=== PATIENT | female | born 1955 | race Caucasian/White ===

== ENCOUNTER 2023-05-27 10:41 | Emergency (ER) | payer MEDICARE ==
[2023-05-27] MEDS ORDERED: Ondansetron PF 4 MG/2 ML Vial ONE (11:23)
[2023-05-27] MEDS ORDERED: Morphine 4 MG/ML VIAL ONE ×2 (11:23→14:02)
[2023-05-27 11:32] LABS: #Basophils 0.1 thou/uL (0.0-0.2); #Eosinphils 0.2 thou/uL (0.0-0.7); #Monocytes 0.6 thou/uL (0.11-0.59); #Neutrophils 5.2 thou/uL (1.40-6.50); %Basophils 0.7 % (0.0-1.0); %Lymphocytes 27.7 % (21.0-51.0); %Monocytes 7.4 % (0.0-10.0); %Neutrophils 61.7 % (42.0-75.0); Hematocrit 41.9 % (36.0-47.0); Hemoglobin 13.7 g/dL (12.0-16.0); Mean Corpuscular HGB CONC 32.7 g/dL (32.0-36.0); Mean Corpuscular Hemoglobin 30.6 pg (27.0-31.0); Mean Corpuscular Volume 93.7 fl (78.0-98.0); Mean Platelet Volume 9.9 fL (7.4-10.4); Platelet Count 236 10x3/uL (130-400); RBC Distribution Width 13.7 % (11.5-14.5); Red Blood Cell (RBC) Count 4.47 mill/uL (4.20-5.40); White Blood Cell (WBC) Count 8.4 10x3/uL (4.8-10.8)
[2023-05-27 11:59] LABS: ALT (SGPT) 17 U/L (8-55); AST (SGOT) 14 U/L (5-34); Albumin 3.8 g/dL (3.4-4.8); Alkaline Phosphatase 77 U/L (40-110); Anion Gap 13 mmol/L (10-20); BUN (Urea Nitrogen) 16 mg/dL (9.8-20.1); Bilirubin, Total 0.8 mg/dL (0.2-1.2); Calc. Creatinine Clearance 0 mL/min (70-130); Calcium 8.8 mg/dL (7.8-10.44); Carbon Dioxide 25 mmol/L (23-31); Chloride 107 mmol/L (98-107); Estimated GFR 77; Globulin 2.9 g/dL (2.4-3.5); Glucose 138 mg/dL (80-115); Magnesium 2.1 mg/dL (1.6-2.6); Potassium 4.8 mmol/L (3.5-5.1); Protein, Total 6.7 g/dL (5.8-8.1); Sodium 140 mmol/L (136-145)
[2023-05-27 12:04] LABS: CKMB 1.2 ng/mL (0-6.6); Troponin I Less than 0.010 ng/mL (< 0.028)
[2023-05-27 12:17] LABS: Free T4 (Free Thyroxine) 1.03 ng/dL (0.70-1.48); Thyroid Stimulating Hormone 3.4497 uIU/mL (0.35-4.94)
[2023-05-27] MEDS ORDERED: Clindamycin/D5W 300 MG/50 ML BAG ONE (12:39)
[2023-05-27] MEDS ORDERED: Clindamycin 150 MG CAP ONE (12:40)
[2023-05-27] MEDS ORDERED: Clindamycin 150 MG CAP PO SCH (12:45)
== END 2023-05-27 14:14 | disposition home or self-care (01) ==
LOC: ERS 10:41
DX: L03.116 Cellulitis of left lower limb (principal); E11.9 Type 2 diabetes mellitus without complications
CPT/HCPCS: 36415; 71045; 80053; 82553; 83605; 83735; 83880; 84439; 84443; 85025; 87040; 93005; 96374; 96375; 96376; J2270; J2405; J3490

== ENCOUNTER 2023-06-14 11:57 | Emergency (ER) | payer MEDICARE ==
[2023-06-14 12:50] LABS: #Basophils 0.1 thou/uL (0.0-0.2); #Eosinphils 0.2 thou/uL (0.0-0.7); #Monocytes 0.7 thou/uL (0.11-0.59); #Neutrophils 6.3 thou/uL (1.40-6.50); %Basophils 0.5 % (0.0-1.0); %Eosinophils 2.2 % (0.0-10.0); %Lymphocytes 25.3 % (21.0-51.0); %Monocytes 7.3 % (0.0-10.0); %Neutrophils 64.4 % (42.0-75.0); Hematocrit 43.1 % (36.0-47.0); Hemoglobin 14.3 g/dL (12.0-16.0); Mean Corpuscular HGB CONC 33.2 g/dL (32.0-36.0); Mean Corpuscular Hemoglobin 30.8 pg (27.0-31.0); Mean Corpuscular Volume 92.7 fl (78.0-98.0); Platelet Count 270 10x3/uL (130-400); RBC Distribution Width 13.6 % (11.5-14.5); Red Blood Cell (RBC) Count 4.65 mill/uL (4.20-5.40); White Blood Cell (WBC) Count 9.8 10x3/uL (4.8-10.8)
[2023-06-14 13:16] LABS: ALT (SGPT) 18 U/L (8-55); AST (SGOT) 16 U/L (5-34); Albumin 3.8 g/dL (3.4-4.8); Alkaline Phosphatase 86 U/L (40-110); Anion Gap 13 mmol/L (10-20); BUN (Urea Nitrogen) 17 mg/dL (9.8-20.1); Bilirubin, Total 1.1 mg/dL (0.2-1.2); Calc. Creatinine Clearance 0 mL/min (70-130); Calcium 8.8 mg/dL (7.8-10.44); Carbon Dioxide 22 mmol/L (23-31); Chloride 105 mmol/L (98-107); Estimated GFR 81; Globulin 3.4 g/dL (2.4-3.5); Glucose 105 mg/dL (80-115); Potassium 4.1 mmol/L (3.5-5.1); Protein, Total 7.2 g/dL (5.8-8.1); Sodium 136 mmol/L (136-145)
== END 2023-06-14 14:50 | disposition home or self-care (01) ==
LOC: ERS 11:57
DX: R22.43 Localized swelling, mass and lump, lower limb, bilateral (principal); M79.605 Pain in left leg; M79.604 Pain in right leg; H60.509 Unspecified acute noninfective otitis externa, unspecified ear; E11.9 Type 2 diabetes mellitus without complications
CPT/HCPCS: 36415; 71046; 80053; 83880; 85025

== ENCOUNTER 2024-07-29 13:32 | Inpatient (IN) | payer MEDICARE, OTHER ==
[~2024-07-29 13:32] MED LIST: Iopamidol-370 76% 500 ML MDV (1 ML CHARGE) ONE
[2024-07-29] MEDS ORDERED: dilTIAZem 25 MG/5 ML VIAL ONE ×2 (15:01→16:05)
[2024-07-29 15:13] LABS: #Basophils 0.06 10x3/uL (0.0-0.2); #Eosinophils Less than 0.03 10x3/uL (0.0-0.7); %Basophils 0.3 % (0.0-1.0); %Lymphocytes 6.7 % (21.0-51.0); %Monocytes 4.8 % (0.0-10.0); %Neutrophils 87.7 % (42.0-75.0); Hematocrit 42.2 % (36.0-47.0); Hemoglobin 14.2 g/dL (12.0-16.0); Mean Corpuscular HGB CONC 33.6 g/dL (32.0-36.0); Mean Corpuscular Hemoglobin 30.4 pg (27.0-31.0); Mean Corpuscular Volume 90.4 fL (78.0-98.0); Mean Platelet Volume 9.8 fL (7.4-10.4); Platelet Count 201 10x3/uL (130-400); RBC Distribution Width 13.8 % (11.5-14.5); Red Blood Cell (RBC) Count 4.67 mill/uL (4.20-5.40)
[2024-07-29 15:28] LABS: PTT 30.8 sec (22.9-36.1); Prothrombin Time 13.6 sec (12.0-14.7)
[2024-07-29 16:00] LABS: Troponin I 0.172 ng/mL (< 0.028)
[2024-07-29 16:03] LABS: ALT (SGPT) 24 U/L (8-55); AST (SGOT) 16 U/L (5-34); Albumin 3.1 g/dL (3.4-4.8); Alkaline Phosphatase 78 U/L (40-110); Anion Gap 13 mmol/L (10-20); BUN (Urea Nitrogen) 13 mg/dL (9.8-20.1); Bilirubin, Total 2.5 mg/dL (0.2-1.2); Calc. Creatinine Clearance 0 mL/min (70-130); Calcium 8.3 mg/dL (7.8-10.44); Carbon Dioxide 26 mmol/L (23-31); Chloride 101 mmol/L (98-107); Estimated GFR 63; Globulin 3.4 g/dL (2.4-3.5); Glucose 168 mg/dL (80-115); Potassium 3.9 mmol/L (3.5-5.1); Protein, Total 6.5 g/dL (5.8-8.1); Sodium 136 mmol/L (136-145)
[2024-07-29] MEDS ORDERED: Sodium Chloride 0.9% 100 ML ONE (16:04)
[2024-07-29] MEDS ORDERED: Cefepime 2 GM VIAL ONE (16:04)
[2024-07-29] MEDS ORDERED: Vancomycin (BATCH) 2 GM/500 ML BAG ONE (16:19)
[2024-07-29 19:03] LABS: Bilirubin Negative (Negative); Blood, Urine 3+ (Negative); CAUTI Indications for Culture Pelvic or flank pain; Clarity Clear (Clear); Glucose, Urine (Dipstick) Normal (Negative); Ketone, Urine Negative (Negative); Leukocyte Negative Leu/uL (Negative); Nitrite Negative (Negative); Protein, Urine (Dipstick) 30 mg/dL (Neg-Trace); RBC/HPF Greater than 50 HPF (0-3); Urobilinogen Normal mg/dL (Less than 2)
[2024-07-29 19:05] LABS: Bacteria/HPF Rare-Few HPF (None Seen); Specific Gravity, Urine 1.055 (1.002-1.036)
[2024-07-29 19:06] LABS: Urine Culture Reflex Yes Yes
[2024-07-29] MEDS ORDERED: Acetaminophen 325 MG TAB PO PRN (20:11)
[2024-07-29] MEDS ORDERED: Dextrose 50% Abboject 50 ML SYRINGE SLOW IVP PRN (20:11)
[2024-07-29] MEDS ORDERED: Dextrose 5% in Water 1,000 ML IV PRN (20:11)
[2024-07-29] MEDS ORDERED: Glucagon 1 MG/ML KIT IM PRN (20:11)
[2024-07-29] MEDS ORDERED: Ondansetron ODT 4 MG TAB PO PRN (20:11)
[2024-07-29] MEDS ORDERED: Insulin Lispro 100 UNIT/ML 10 ML VIAL SC PRN ×2 (20:15)
[2024-07-29 21:04] LABS: Troponin I 0.518 ng/mL (< 0.028)
[2024-07-29] MEDS: Vancomycin (BATCH) 2 GM in Premix 1 BAG IVPB SCH (22:45)
[2024-07-29] MEDS: Famotidine 20 MG TAB PO SCH (22:56)
[2024-07-29] MEDS: Cefepime 2 GM in Sodium Chloride 0.9% 100 ML IVPB SCH (22:56)
[2024-07-29] MEDS: Apixaban 5 MG TAB PO SCH (23:38)
[2024-07-29 23:58] LABS: Influenza A by NAA Not Detected (NotDetected); Influenza B by NAA Not Detected (NotDetected); SARS-CoV-2 NAA Rapid Test Not Detected (NotDetected)
[2024-07-30 00:04] LABS: Troponin I 0.581 ng/mL (< 0.028)
[2024-07-30] MEDS: Lactated Ringer's 500 ML IV SCH (00:10)
[2024-07-30 03:32] LABS: #Basophils 0.04 10x3/uL (0.0-0.2); #Eosinophils Less than 0.03 10x3/uL (0.0-0.7); %Basophils 0.4 % (0.0-1.0); %Eosinophils 0.1 % (0.0-10.0); %Lymphocytes 9.1 % (21.0-51.0); %Monocytes 5.8 % (0.0-10.0); %Neutrophils 84.2 % (42.0-75.0); Hematocrit 37.7 % (36.0-47.0); Hemoglobin 12.5 g/dL (12.0-16.0); Mean Corpuscular HGB CONC 33.2 g/dL (32.0-36.0); Mean Corpuscular Hemoglobin 30.1 pg (27.0-31.0); Mean Corpuscular Volume 90.8 fL (78.0-98.0); Platelet Count 184 10x3/uL (130-400); Red Blood Cell (RBC) Count 4.15 mill/uL (4.20-5.40)
[2024-07-30 03:54] LABS: Vancomycin, Random 10.8 ug/mL (See Comment)
[2024-07-30 03:55] LABS: Lactic Acid 1.41 mmol/L (0.5-2.2)
[2024-07-30 03:58] LABS: ALT (SGPT) 19 U/L (8-55); AST (SGOT) 20 U/L (5-34); Albumin 2.9 g/dL (3.4-4.8); Alkaline Phosphatase 73 U/L (40-110); Anion Gap 11 mmol/L (10-20); BUN (Urea Nitrogen) 12 mg/dL (9.8-20.1); Bilirubin, Total 2.3 mg/dL (0.2-1.2); Calc. Creatinine Clearance 186 mL/min (70-130); Calcium 7.8 mg/dL (7.8-10.44); Carbon Dioxide 26 mmol/L (23-31); Chloride 108 mmol/L (98-107); Estimated GFR 77; Globulin 2.9 g/dL (2.4-3.5); Glucose 144 mg/dL (80-115); Potassium 4.4 mmol/L (3.5-5.1); Protein, Total 5.8 g/dL (5.8-8.1); Sodium 141 mmol/L (136-145)
[2024-07-30 04:06] LABS: Troponin I 0.514 ng/mL (< 0.028)
[2024-07-30] MEDS: Levothyroxine Sodium 100 MCG TAB PO SCH (05:31)
[2024-07-30] MEDS: Vancomycin (BATCH) 1.5 GM in Premix 1 BAG IVPB SCH (05:32)
[2024-07-30] MEDS: dilTIAZem 30 MG TAB PO SCH (08:32)
[2024-07-30] MEDS: Apixaban 5 MG TAB PO SCH (08:32)
[2024-07-30] MEDS: Rosuvastatin 10 MG TAB PO SCH (08:32)
[2024-07-30] MEDS: Gabapentin 300 MG CAP PO SCH (08:33)
[2024-07-30] MEDS: Ampicillin/Sulbactam 3 GM in Sodium Chloride 0.9% 100 ML IVPB SCH (14:15)
[2024-07-30 23:49] VITALS: BMI 67.7
[2024-07-31] MEDS: Amoxicillin/Potassium Clav 875 MG TAB PO SCH ×2 (00:42→09:02)
[2024-07-31 04:03] LABS: #Basophils 0.04 10x3/uL (0.0-0.2); %Basophils 0.7 % (0.0-1.0); %Eosinophils 4.6 % (0.0-10.0); %Lymphocytes 25.1 % (21.0-51.0); %Monocytes 13.6 % (0.0-10.0); %Neutrophils 55.5 % (42.0-75.0); Hematocrit 37.8 % (36.0-47.0); Hemoglobin 12.3 g/dL (12.0-16.0); Mean Corpuscular HGB CONC 32.5 g/dL (32.0-36.0); Mean Corpuscular Hemoglobin 29.9 pg (27.0-31.0); Mean Platelet Volume 10.3 fL (7.4-10.4); Platelet Count 167 10x3/uL (130-400); Red Blood Cell (RBC) Count 4.11 mill/uL (4.20-5.40)
[2024-07-31 04:57] LABS: ALT (SGPT) 23 U/L (8-55); AST (SGOT) 19 U/L (5-34); Albumin 2.8 g/dL (3.4-4.8); Alkaline Phosphatase 74 U/L (40-110); Anion Gap 9 mmol/L (10-20); BUN (Urea Nitrogen) 11 mg/dL (9.8-20.1); Bilirubin, Total 1.3 mg/dL (0.2-1.2); Calc. Creatinine Clearance 206 mL/min (70-130); Calcium 7.9 mg/dL (7.8-10.44); Carbon Dioxide 22 mmol/L (23-31); Chloride 108 mmol/L (98-107); Estimated GFR 87; Globulin 2.9 g/dL (2.4-3.5); Glucose 139 mg/dL (80-115); Protein, Total 5.7 g/dL (5.8-8.1); Sodium 135 mmol/L (136-145)
[2024-07-31] MEDS: FLU (Fluad Triv) TS24-25 (65UP)/MF59C/PF 45 MCG/0.5 ML Syringe IM ONE (09:06)
[2024-07-31 12:34] VITALS: BP 150/81; TEMP 98.2
== END 2024-07-31 14:30 | disposition home or self-care (01) | DRG 871 ==
LOC: ERS 13:32 → 2SW 19:54 → OBSVTOIN 07-31 09:17
PROVIDERS: ADMIT Emergency Medicine; ATTEND Emergency Medicine
DX: A41.9 Sepsis, unspecified organism (principal); I21.A1 Myocardial infarction type 2; E87.20 Acidosis, unspecified; Z68.44 Body mass index [BMI] 60.0-69.9, adult; M27.2 Inflammatory conditions of jaws; H66.92 Otitis media, unspecified, left ear; E03.9 Hypothyroidism, unspecified; G47.33 Obstructive sleep apnea (adult) (pediatric); E11.9 Type 2 diabetes mellitus without complications; I10 Essential (primary) hypertension; I48.0 Paroxysmal atrial fibrillation; I89.0 Lymphedema, not elsewhere classified; E66.9 Obesity, unspecified; Z88.0 Allergy status to penicillin; Z88.8 Allergy status to other drugs, medicaments and biological substances; Z91.018 Allergy to other foods; Z79.01 Long term (current) use of anticoagulants; Z79.899 Other long term (current) drug therapy; Z79.890 Hormone replacement therapy
CPT/HCPCS: 36415; 36416; 70450; 70491; 71045; 80053; 80202; 81001; 83605; 83735; 83880; 84443; 84484; 85025; 85610; 85730; 87040; 87086; 87428; 93005; 93010; 96365; 96366; 96375; 96376; G0378; J0295; J0692; J3370; J7120; Q9967